=== PATIENT | female | born 1985 | race Caucasian/White ===

== ENCOUNTER 2025-05-11 19:28 | Emergency (ER) | payer BC ==
[~2025-05-11] VITALS: Ht 157.5 cm; Wt 56.7 kg
[2025-05-11 19:50] VITALS: PULSE 58; RESP 18; TEMP 98.5
[2025-05-11] MEDS ORDERED: TRIAMCINOLONE A15 G1 TOP (20:16)
[2025-05-11 20:29] VITALS: BP 103/65; PULSE 58; RESP 18; TEMP 98.5; O2SAT 100
== END 2025-05-11 20:29 | disposition home or self-care (01) ==
LOC: FSED 20:14
DX: R21 Rash and other nonspecific skin eruption (principal)
CPT/HCPCS: 99282